=== PATIENT | male | born 1960 | race Native Hawaiian/Other Pacific Islander ===

== ENCOUNTER 2019-03-15 16:57 | Observation (INO) | payer BC ==
[~2019-03-15] VITALS: Ht 177.8 cm; Wt 104.8 kg
[2019-03-15 16:57] VITALS: BP 145/89; TEMP 97.3
[2019-03-15 17:10] LABS: PLATELET COUNT 156 K/uL (142-355)
[2019-03-15] MEDS ORDERED: ALLO100T22 PO (17:12)
[2019-03-15] MEDS ORDERED: QBRELIS1 MG/ML PO (17:13)
[2019-03-15] MEDS ORDERED: METOPROLOL25 M1 (17:14)
[2019-03-15] MEDS ORDERED: ASA LOW DOSE81 MG PO (17:14)
[2019-03-15 17:23] LABS: POTASSIUM 3.9 mmol/L (3.6-5.2); SODIUM 137 mmol/L (136-145)
[2019-03-15 17:29] LABS: PARTIAL THROMBOPLASTIN TIME 27.9 SECONDS (24.5-33.6)
[2019-03-15 17:30] VITALS: BP 115/76
[2019-03-15 18:00] VITALS: BP 114/78
[2019-03-15 21:07] VITALS: BP 119/90; TEMP 97.6; Ht 177.8 cm; Wt 104.8 kg
[2019-03-16] VITALS: BP 96/59; TEMP 97.2
[2019-03-16 03:57] VITALS: BP 92/51; TEMP 98.2
[2019-03-16 08:25] VITALS: BP 92/55; TEMP 97.5
[2019-03-16] MEDS ORDERED: NITR0.4S SL (10:39)
--- NOTE | 2019-03-16 17:10 | NUR ---
1130 PT IV DC'D, TIP INTACT. NO REDESS OR SWELLING NOTED. PT TOLERATED WELL. PT GIVEN D/C INSTRUCTIONS. PT INSTRUCTED TO BRING ORDER GIVEN BACK TO ADMISSIONS ON MondayMarch FOR AN OUTPATIENT STRESS TEST. PT REFERRED TO DR. MARY BY DR. CELAYA. INFORMED PT THAT DR. MARY OFFICE WOULD CALL HIM WITH AN APPT. EDUCATED PT ON NEW MEDICATION , NITRO SL, PT AND SPOUSE VERBALIZED UNDERSTANDING. PT D/C VIA W/C. NAD NOTED.
== END 2019-03-16 17:08 | disposition home or self-care (01) ==
LOC: ED 16:57 → MED/SURG 18:08
PROVIDERS: ADMIT Student in an Organized Health Care Education/Training Program
DX: R07.89 Other chest pain (principal); I25.10 Atherosclerotic heart disease of native coronary artery without angina pectoris; M10.9 Gout, unspecified; N28.9 Disorder of kidney and ureter, unspecified; I10 Essential (primary) hypertension; I25.2 Old myocardial infarction
CPT/HCPCS: 80053; 82550; 83880; 84484; 85027; 85610; 85730; 93005; 96365; 96375; 99220; 99284; G0378; J2270; J2405

== ENCOUNTER 2019-03-19 08:08 | Outpatient (CLI) | payer BC ==
[~2019-03-19 08:08] MED LIST: ALLO100T22 PO; ASA LOW DOSE81 MG PO; METOPROLOL25 M1; NITR0.4S SL; QBRELIS1 MG/ML PO
[2019-03-19] MEDS ORDERED: ALLO300T23 PO (13:09)
[2019-03-19] MEDS ORDERED: METO50TA27 PO (13:10)
[2019-03-19] MEDS ORDERED: TRAZODONE HYDRO50 MG PO (13:11)
[2019-03-19] MEDS ORDERED: ROSUVASTATIN CA40 MG PO (13:12)
[2019-03-19] MEDS ORDERED: RANI150T78 PO (13:12)
[2019-03-19] MEDS ORDERED: LISI10TA11 PO (13:13)
== END 2019-03-19 19:08 | disposition home or self-care (01) ==
LOC: NM 08:08
DX: R07.9 Chest pain, unspecified (principal)
CPT/HCPCS: A9500

== ENCOUNTER 2019-03-19 15:20 | Outpatient (CLI) | payer BC ==
[~2019-03-19 15:20] MED LIST changes: +ALLO300T23 PO; +LISI10TA11 PO; +METO50TA27 PO; +RANI150T78 PO; +ROSUVASTATIN CA40 MG PO; +TRAZODONE HYDRO50 MG PO
== END 2019-03-19 15:50 | disposition short-term general hospital (02) ==
LOC: AMB 15:20
DX: R07.89 Other chest pain (principal); R94.39 Abnormal result of other cardiovascular function study
CPT/HCPCS: A0425; A0429

== ENCOUNTER 2019-06-23 09:13 | Outpatient (CLI) | payer BC | END 2019-06-23 20:35 | disposition home or self-care (01) | LOC: LABW 09:13 | PROVIDERS: Specialist | DX: I25.10 Atherosclerotic heart disease of native coronary artery without angina pectoris (principal); E78.2 Mixed hyperlipidemia; Z79.899 Other long term (current) drug therapy | CPT/HCPCS: 36415; 80061; 80076 ==

== ENCOUNTER 2020-02-17 08:02 | Outpatient (CLI) | payer BC | END 2020-02-17 19:51 | disposition home or self-care (01) | LOC: LABW 08:02 | PROVIDERS: Specialist | DX: I25.10 Atherosclerotic heart disease of native coronary artery without angina pectoris (principal); E78.2 Mixed hyperlipidemia; Z79.899 Other long term (current) drug therapy | CPT/HCPCS: 36415; 80061; 80076 ==

== ENCOUNTER 2021-02-23 10:19 | Outpatient (CLI) | payer OTHER ==
[2021-02-23 11:12] LABS: PLATELET COUNT 151 K/uL (142-355)
[2021-02-23 11:33] LABS: POTASSIUM 4.4 mmol/L (3.6-5.2)
== END 2021-02-23 22:42 | disposition home or self-care (01) ==
LOC: LABW 10:19
PROVIDERS: ATTEND Student in an Organized Health Care Education/Training Program
DX: N20.0 Calculus of kidney (principal); N18.32 Chronic kidney disease, stage 3b
CPT/HCPCS: 36415; 80053; 80074; 82306; 82330; 82340; 82728; 83036; 83516; 83540; 83550; 83735; 83945; 83970; 84100; 84105; 84165; 85027; 85044; 86038; 86160; 86255; 86431; 86592; 86701; 86702; 87389

== ENCOUNTER 2021-03-03 10:04 | Outpatient (CLI) | payer OTHER | END 2021-03-03 22:20 | disposition home or self-care (01) | LOC: LABW 10:04 | PROVIDERS: ATTEND Student in an Organized Health Care Education/Training Program | DX: N20.0 Calculus of kidney (principal); N18.32 Chronic kidney disease, stage 3b | CPT/HCPCS: 82570; 84300; 84540; 84560 ==

== ENCOUNTER 2021-06-28 21:10 | Emergency (ER) | payer BC, OTHER ==
[~2021-06-28] VITALS: Ht 177.8 cm; Wt 101.2 kg
[2021-06-28 22:08] LABS: PLATELET COUNT 135 K/uL (142-355)
[2021-06-28 22:21] LABS: POTASSIUM 5.2 mmol/L (3.6-5.2)
[2021-06-28 23:35] VITALS: BP 121/88; TEMP 98.3
--- NOTE | 2021-07-01 13:13 | NUR ---
1314-PATIENT NOTIFIED OF COVID TEST RESULTS. EDUCATED PATIENT ON IMPORTANCE OF QUARENTINING AND NOTIFYING HIS PCP. PATIENT STATES THAT HIS CARE [facility]SE[facility] BY [facility]. INSTRUCTED PATIENT TO CALL [facility] AND NOTIFY HIS PROVIDER FOR FURTHER INSTRUCTIONS. PATIENT VERBALIZED UNDERSTANDING. NO ADDITIONAL COMMENTS OR QUESTIONS VOICED AT THIS TIME.
== END 2021-06-28 23:35 | disposition home or self-care (01) ==
LOC: ED 21:10
PROVIDERS: Emergency Medicine Emergency Medical Services
DX: J42 Unspecified chronic bronchitis (principal); U07.1 COVID-19
CPT/HCPCS: 36415; 80048; 85027; 87502; 87635; 87651; 96365; 99284; J0696; U0003

== ENCOUNTER 2021-07-08 10:13 | Emergency (ER) | payer BC, OTHER ==
[~2021-07-08] VITALS: Ht 177.8 cm; Wt 96.6 kg
[2021-07-08 10:42] LABS: PLATELET COUNT 182 K/uL (142-355)
[2021-07-08 11:25] LABS: POTASSIUM 4.4 mmol/L (3.6-5.2)
[2021-07-08 11:50] VITALS: BP 105/71; TEMP 98.5
== END 2021-07-08 11:50 | disposition home or self-care (01) ==
LOC: ED 10:13
PROVIDERS: Hospitalist
DX: U07.1 COVID-19 (principal); J06.9 Acute upper respiratory infection, unspecified; R11.2 Nausea with vomiting, unspecified; N18.9 Chronic kidney disease, unspecified
CPT/HCPCS: 36415; 80053; 81000; 83690; 85027; 96360; 96375; 99284; J1100; J2405

== ENCOUNTER 2021-08-16 09:29 | Outpatient (CLI) | payer OTHER ==
[2021-08-16 10:06] LABS: POTASSIUM 4.3 mmol/L (3.6-5.2)
== END 2021-08-16 20:59 | disposition home or self-care (01) ==
LOC: LABW 09:29
PROVIDERS: ATTEND Student in an Organized Health Care Education/Training Program
DX: I12.9 Hypertensive chronic kidney disease with stage 1 through stage 4 chronic kidney disease, or unspecified chronic kidney disease (principal); N18.32 Chronic kidney disease, stage 3b; N20.0 Calculus of kidney
CPT/HCPCS: 36415; 80053; 81000; 82570; 84155; 85018

== ENCOUNTER 2023-03-17 09:24 | Outpatient (CLI) | payer OTHER ==
[2023-03-17 12:01] LABS: PLATELET COUNT 156 K/uL (142-355)
[2023-03-17 12:12] LABS: POTASSIUM 4.9 mmol/L (3.6-5.2)
[2023-03-17] MEDS ORDERED: ACID REDUCER20 MG PO (16:00)
== END 2023-03-17 19:10 | disposition home or self-care (01) ==
LOC: LABW 09:24
PROVIDERS: ATTEND Student in an Organized Health Care Education/Training Program
DX: I12.9 Hypertensive chronic kidney disease with stage 1 through stage 4 chronic kidney disease, or unspecified chronic kidney disease (principal); N18.32 Chronic kidney disease, stage 3b; N20.0 Calculus of kidney; R80.8 Other proteinuria; R82.991 Hypocitraturia; E55.9 Vitamin D deficiency, unspecified; N25.81 Secondary hyperparathyroidism of renal origin; D50.8 Other iron deficiency anemias; E78.2 Mixed hyperlipidemia; M10.9 Gout, unspecified
CPT/HCPCS: 36415; 80053; 81000; 82306; 82570; 83735; 83970; 84100; 84156; 84550; 85027

== ENCOUNTER 2023-03-17 15:18 | Emergency (ER) | payer OTHER ==
[~2023-03-17] VITALS: Ht 177.8 cm; Wt 102.1 kg
[2023-03-17 15:24] VITALS: TEMP 98.3
[2023-03-17] MEDS ORDERED: ACID REDUCER20 MG PO (16:00)
[2023-03-17 17:00] VITALS: BP 103/66
[2023-03-17 17:05] LABS: PARTIAL THROMBOPLASTIN TIME 33.1 SECONDS (23.9-36.7)
[2023-03-17 17:10] LABS: PLATELET COUNT 160 K/uL (142-355)
[2023-03-17 19:46] LABS: PLATELET COUNT 133 K/uL (142-355)
== END 2023-03-17 20:45 | disposition home or self-care (01) ==
LOC: ED 15:18
PROVIDERS: Family Medicine
DX: D75.1 Secondary polycythemia (principal); R06.02 Shortness of breath; K80.20 Calculus of gallbladder without cholecystitis without obstruction
CPT/HCPCS: 84484; 85027; 85379; 85610; 85730; 93005; 96360; 99284

== ENCOUNTER 2023-03-28 09:42 | Outpatient (CLI) | payer OTHER ==
[~2023-03-28 09:42] MED LIST changes: +ACID REDUCER20 MG PO
== END 2023-03-28 19:20 | disposition home or self-care (01) ==
LOC: LABW 09:42
PROVIDERS: ATTEND Student in an Organized Health Care Education/Training Program
DX: I12.9 Hypertensive chronic kidney disease with stage 1 through stage 4 chronic kidney disease, or unspecified chronic kidney disease (principal); N18.32 Chronic kidney disease, stage 3b; N20.0 Calculus of kidney; R80.8 Other proteinuria; R82.991 Hypocitraturia; E55.9 Vitamin D deficiency, unspecified; N25.81 Secondary hyperparathyroidism of renal origin; D50.8 Other iron deficiency anemias; E78.2 Mixed hyperlipidemia; M10.9 Gout, unspecified
CPT/HCPCS: 82340; 82507; 82570; 83735; 83945; 84105; 84300; 84560

== ENCOUNTER 2023-05-09 11:19 | Outpatient (CLI) | payer OTHER ==
[~2023-05-09] VITALS: Ht 162.6 cm; Wt 102.5 kg
== END 2023-05-09 19:17 | disposition home or self-care (01) ==
LOC: NM 11:19
PROVIDERS: ATTEND Nurse Practitioner
DX: I25.10 Atherosclerotic heart disease of native coronary artery without angina pectoris (principal)
CPT/HCPCS: A9500; J2785